=== PATIENT | female | born 1995 | race Caucasian/White ===

== ENCOUNTER 2019-02-19 19:29 | Emergency (ER) | payer SELFPAY ==
[~2019-02-19] VITALS: Ht 152.4 cm; Wt 64.9 kg
[2019-02-19 19:36] VITALS: Ht 152.4 cm; Wt 64.9 kg
[2019-02-19 21:20] LABS: BASOPHIL % 0.5 % (0-2); PLATELET COUNT 195 x10^3mcL (130-400); RED CELL DISTRIBUTION WIDTH 12.5 % (11.5-14.5)
[2019-02-19 21:27] LABS: CALCIUM 8.4 mg/dL (8.5-10.1); CARBON DIOXIDE 24.2 mmol/L (21-32); CHLORIDE SERUM 106 mmol/L (98-107); CREATININE SERUM 0.8 mg/dL (0.6-1.0); GFR1 > 60 mL/min; GLUCOSE SERUM 86 mg/dL (74-106); POTASSIUM SERUM 3.3 mmol/L (3.5-5.1); SODIUM SERUM 144 mmol/L (136-145)
[2019-02-19 21:31] LABS: ALBUMIN 4.2 g/dL (3.4-5.0); ALKALINE PHOSPHATASE 41 U/L (46-116); ALT/SGPT 11 U/L (14-59); AST/SGOT 13 U/L (15-37); BILIRUBIN TOTAL 0.4 mg/dL (0.20-1.00); LIPASE 80 IU/L (73-393); TOTAL PROTEIN, SERUM 7.8 g/dL (6.4-8.2)
[2019-02-19 21:42] VITALS: BP 104/65
== END 2019-02-19 21:50 | disposition home or self-care (01) ==
LOC: ED 19:29
PROVIDERS: Emergency Medicine
DX: R10.13 Epigastric pain (principal)
CPT/HCPCS: 36415; Q0092

== ENCOUNTER 2019-05-31 23:16 | Emergency (ER) | payer OTHER ==
[~2019-05-31] VITALS: Ht 157.5 cm; Wt 62.6 kg
[2019-05-31 23:33] VITALS: Ht 157.5 cm; Wt 62.6 kg
[2019-06-01 03:37] LABS: CALCIUM 8.7 mg/dL (8.5-10.1); CARBON DIOXIDE 22.3 mmol/L (21-32); CHLORIDE SERUM 108 mmol/L (98-107); CREATININE SERUM 0.8 mg/dL (0.6-1.0); GFR1 > 60 mL/min; GLUCOSE SERUM 91 mg/dL (74-106); POTASSIUM SERUM 3.9 mmol/L (3.5-5.1); SODIUM SERUM 141 mmol/L (136-145)
[2019-06-01 03:42] LABS: ALBUMIN 4.1 g/dL (3.4-5.0); ALKALINE PHOSPHATASE 43 U/L (46-116); ALT/SGPT 21 U/L (14-59); AST/SGOT 12 U/L (15-37); BILIRUBIN TOTAL 0.38 mg/dL (0.20-1.00); TOTAL PROTEIN, SERUM 7.5 g/dL (6.4-8.2)
[2019-06-01 03:49] LABS: BASOPHIL % 0.4 % (0-2); PLATELET COUNT 160 x10^3mcL (130-400); RED CELL DISTRIBUTION WIDTH 12.2 % (11.5-14.5)
[2019-06-01 04:24] LABS: AMPHETAMINE QUAL UR NONE DETECTED (See below)
[2019-06-01 06:18] VITALS: BP 133/82
== END 2019-06-01 05:44 | disposition home or self-care (01) ==
LOC: ED 23:16
PROVIDERS: Emergency Medicine
DX: R51 Headache (principal); G90.09 Other idiopathic peripheral autonomic neuropathy; H53.8 Other visual disturbances
CPT/HCPCS: 36415